=== PATIENT | female | born 1985 | race Caucasian/White ===

== ENCOUNTER 2024-01-01 09:15 | Emergency (ER) | payer OTHER, SELFPAY ==
[2024-01-01 09:18] VITALS: BP 152/87; PULSE 95; RESP 18; TEMP 37.2; O2SAT 95; BMI 40.7
--- NOTE | 2024-01-01 10:04 | ED.GENADULT ---
HPI - General Adult General Chief complaint: Laceration/Wound Stated complaint: finger lac Time Seen by Provider: 01/01/24 09:17 History of Present Illness HPI narrative: This 38-year-old female was working here at the hospital [employer] when she accidentally cut into the tip of her right thumb. She was wearing a rubber glove. She is left-handed. She has an avulsion type injury of the distal portion of her right thumb with some injury also to most of the distal portion of the fingernail. She comes in with the avulsed skin laying nicely and proper position with no active bleeding. Her tetanus status is not up-to-date with her last vaccination 11 years ago. Related Data Allergies Allergy/AdvReac Type Severity Reaction Status Date / Time cefdinir [From Omnicef] Allergy Verified 01/01/24 09:18 cefprozil [From Cefzil] Allergy Verified 01/01/24 09:18 nickel Allergy Verified 01/01/24 09:18 topiramate [From Topamax] Allergy Verified 01/01/24 09:18 Review of Systems Status of ROS: Reports: 10 or more systems reviewed and unremarkable except as noted in History and below Narrative: Constitutional: No fevers, no weight gain or loss. Eyes: No discharge. No vision changes. HENT: No congestion, no sore throat, no ear pain. Cardiovascular: No chest pain, no palpitations. Respiratory: No shortness of breath, no wheezes, no cough. Gastrointestinal: No abdominal pain, no vomiting, no diarrhea. Genitourinary: No dysuria, no hematuria. Musculoskeletal: Normal range of motion. Right thumb injury as described above. Skin: No rashes, no pruritis. Neurological: No dizziness, weakness, sensory change, speech change. Endo/Heme/Allergies: No bruising or bleeding. No polydipsia. Pysch: no suicidality, no anxiety, no insomnia. All other systems reviewed and are negative. PFSH PFSH Social History Smoking Status: Current every day smoker What tobacco products do you use: cigarettes Do you use any of these nicotine containing products: E-Cigarettes Second hand tobacco smoke exposure: Yes How often do you have a drink containing alcohol: monthly or less How many standard drinks containing alcohol do you have on a typical day: 1 or 2 How often do you have six or more drinks on one occasion: Never AUDIT-C Alcohol total score: 1 Non-prescribed substance use: marijuana (any form) service: No Exam Narrative: Exam Narrative: Constitutional: Well-developed, well-nourished, no acute distress. HEENT: Normocephalic, atraumatic. Neck: Normal range of motion. Nontender. Supple. Heart: Intact distal pulses. Lungs: No chest discomfort. No wheezes, rhonchi, or rales. Abdomen: Nontender. Back: Normal range of motion. Extremities: Normal range of motion. Avulsion injury of the distal portion of the right thumb. The area involved is about 1 cm in diameter. The skin edges are nicely approximated. Skin: Intact. No rash. Warm. No erythema or pallor. Neurologic: No altered sensation. No weakness. Alert and oriented. Psychiatric: No suicidality. No anxiety or depression. No insomnia. Nursing notes and vitals signs are reviewed. Const: Vital Signs, click to edit/add: Vital Signs - 24 hr 01/01/24 09:18 Temperature 98.9 F Pulse Rate [Pulse Oximeter] 95 Respiratory Rate 18 Blood Pressure [Ri ght Forearm] 152/87 H Pulse Oximetry 95 Oxygen Delivery Me thod Room Air Course Vital Signs Vital signs: Initial Vital Signs Temperature 98.9 F 01/01/24 09:18 Temperature Source Temporal Artery Scan 01/01/24 09:18 Pulse Rate 95 01/01/24 09:18 Pulse Rhythm Regular 01/01/24 09:18 Respiratory Rate 18 01/01/24 09:18 Blood Pressure 152/87 H 01/01/24 09:18 Blood Pressure Mean 108 H 01/01/24 09:18 Blood Pressure Position Supine 01/01/24 09:18 Pulse Oximetry 95 01/01/24 09:18 Oxygen Delivery Method Room Air 01/01/24 09:18 Vital Signs Temperature 98.9 F 01/01/24 09:18 Pulse Rate 95 01/01/24 09:18 Respiratory Rate 18 01/01/24 09:18 Blood Pressure 152/87 H 01/01/24 09:18 Pulse Oximetry 95 01/01/24 09:18 Oxygen Delivery Method Room Air 01/01/24 09:18 Temperature 98.9 F 01/01/24 09:18 Pulse Rate 95 01/01/24 09:18 Respiratory Rate 18 01/01/24 09:18 Blood Pressure 152/87 H 01/01/24 09:18 Pulse Oximetry 95 01/01/24 09:18 Oxygen Delivery Method Room Air 01/01/24 09:18 Medical Decision Making MDM Narrative Medical decision making narrative: This patient comes in with an avulsion type injury to the tip of her right thumb. The skin edges are nicely approximated. The wound was cleansed and then Dermabond was applied. This was followed by a dressing. Instructions were given regarding wound care. Patient did receive an update of her tetanus vaccination here. Discharge Plan Discharge Clinical Impression: Laceration Patient Disposition: Home, Self-Care Condition: Stable Additional Instructions: Keep wound clean and dry. Use [id number] medicines as needed and directed. Follow up with MD return if worsening. Follow Up/Referrals: Melanie Hager MD [Primary Care Provider] - Stand Alone Forms: [facility] Info Instructions
[2024-01-01] MEDS: TETANUS/DIPHTH/PERTUSSIS 0.5 ML SYRINGE IM (10:15)
== END 2024-01-01 10:19 | disposition home or self-care (01) ==
LOC: ED 10:10
PROVIDERS: Emergency Provider Emergency Medicine Emergency Medical Services
DX: S61.011A Laceration without foreign body of right thumb without damage to nail, initial encounter (principal); W26.9XXA Contact with unspecified sharp object(s), initial encounter
CPT/HCPCS: 12001; 90471; 90715; 99283; 99284